=== PATIENT | male | born 1955 | race Caucasian/White ===

== ENCOUNTER → 2018-01-06 | Outpatient (REF) | payer BC ==
[2018-01-06 16:53] LABS: BASO # 0.1 10^3/uL (0.0-0.2); BASO % 1.6 % (0.0-1.0); EOS # 0.2 10^3/uL (0.0-0.50); HEMATOCRIT 47.5 % (42.0-52.0); HEMOGLOBIN 16.8 g/dl (13.5-17.5); IMMATURE GRANULOCYTE % 0.4 % (0-3.0); LYMPH # 2.7 10^3/uL (1.5-4.5); LYMPH % 34.8 % (24.0-44.0); MEAN CORPUSCULAR HEMOGLOBIN 31.1 pg (27.0-33.0); MEAN CORPUSCULAR HGB CONC 35.4 g/dl (32.0-36.5); MONO # 0.7 10^3/uL (0.0-0.8); MONO % 8.4 % (0.0-5.0); NEUTROPHILS % 51.8 % (36.0-66.0); PLATELET COUNT, AUTOMATED 235 10^3/uL (150-450); RED CELL DISTRIBUTION WIDTH 13.5 % (11.5-14.5); WHITE BLOOD COUNT 7.7 10^3/uL (4.0-10.0)
[2018-01-06 17:15] LABS: ALBUMIN 3.6 GM/DL (3.2-5.2); ALBUMIN/GLOBULIN RATIO 1.09 (1.00-1.93); ALKALINE PHOSPHATASE 107 U/L (45-117); ALT/SGPT 30 U/L (12-78); ANION GAP 8 MEQ/L (8-16); AST/SGOT 21 U/L (7-37); BILIRUBIN,TOTAL 0.4 MG/DL (0.2-1.0); BLOOD UREA NITROGEN 14 MG/DL (7-18); CALCIUM LEVEL 8.4 MG/DL (8.8-10.2); CARBON DIOXIDE LEVEL 25 MEQ/L (21-32); CHLORIDE LEVEL 110 MEQ/L (98-107); CHOLESTEROL LEVEL 171 MG/DL (<200); CHOLESTEROL RISK RATIO 4.275 (<5); CREATININE FOR GFR 1.01 MG/DL (0.70-1.30); GLOMERULAR FILTRATION RATE > 60.0 (>49); GLUCOSE, FASTING 96 MG/DL (70-100); HDL CHOLESTEROL 40 MG/DL (>40); LDL CHOLESTEROL 87.8 MG/DL (<100); NON-HDL-C 131 MG/DL; POTASSIUM SERUM 4.1 MEQ/L (3.5-5.1); PSA SCREENING 0.48 NG/ML (< 4.0); SODIUM LEVEL 143 MEQ/L (136-145); TOTAL PROTEIN 6.9 GM/DL (6.4-8.2); TRIGLYCERIDES LEVEL 216 MG/DL (<150)
== END ==
LOC: M SFHCCAPE 07:05
DX: Z12.5 Encounter for screening for malignant neoplasm of prostate (principal); Z13.6 Encounter for screening for cardiovascular disorders
CPT/HCPCS: 84443

== ENCOUNTER 2018-03-17 11:42 | Day surgery (SDC) | payer BC ==
[~2018-03-17 11:42] MED LIST: PROPOFOL 200 MG/20 ML VIAL As Ordered
[2018-03-17] MEDS: NS 1,000 ML IV (12:00)
== END 2018-03-17 15:08 | disposition home or self-care (01) ==
LOC: M OPP 11:42
DX: Z12.11 Encounter for screening for malignant neoplasm of colon (principal); K64.0 First degree hemorrhoids; K62.1 Rectal polyp; I10 Essential (primary) hypertension; K21.9 Gastro-esophageal reflux disease without esophagitis; Z79.899 Other long term (current) drug therapy; Z88.0 Allergy status to penicillin; Z88.8 Allergy status to other drugs, medicaments and biological substances; Z87.891 Personal history of nicotine dependence
CPT/HCPCS: 45380

== ENCOUNTER → 2019-05-19 | Outpatient (REF) | payer OTHER ==
[~2019-05-19] MED LIST changes: +LISI10TA4; -PROPOFOL 200 MG/20 ML VIAL As Ordered
[2019-05-19 17:58] LABS: BASO # 0.1 10^3/uL (0.0-0.2); BASO % 1.1 % (0.0-1.0); EOS # 0.2 10^3/uL (0.0-0.5); EOS % 2.3 % (0.0-3.0); HEMATOCRIT 46.3 % (42.0-52.0); HEMOGLOBIN 16.1 g/dl (13.5-17.5); LYMPH # 2.5 10^3/uL (1.5-5.0); LYMPH % 26.6 % (24.0-44.0); MEAN CORPUSCULAR HEMOGLOBIN 32.1 pg (27.0-33.0); MEAN CORPUSCULAR HGB CONC 34.8 g/dl (32.0-36.5); MEAN CORPUSCULAR VOLUME 92.2 fl (80.0-96.0); MONO # 0.7 10^3/uL (0.0-0.8); MONO % 7.8 % (0.0-5.0); NEUTROPHILS # 5.8 10^3/uL (1.5-8.5); NEUTROPHILS % 61.6 % (36.0-66.0); PLATELET COUNT, AUTOMATED 233 10^3/uL (150-450); RED BLOOD COUNT 5.02 10^6/uL (4.30-6.10); WHITE BLOOD COUNT 9.4 10^3/uL (4.0-10.0)
[2019-05-19 18:07] LABS: ALBUMIN 3.6 GM/DL (3.2-5.2); ALT/SGPT 37 U/L (12-78); BILIRUBIN,TOTAL 0.5 MG/DL (0.2-1.0); BLOOD UREA NITROGEN 15 MG/DL (7-18); CALCIUM LEVEL 9.1 MG/DL (8.8-10.2); CARBON DIOXIDE LEVEL 28 MEQ/L (21-32); CHLORIDE LEVEL 106 MEQ/L (98-107); CHOLESTEROL LEVEL 206 MG/DL (<200); CHOLESTEROL RISK RATIO 3.886 (<5); CREATININE FOR GFR 1.11 MG/DL (0.70-1.30); FREE T4 1.04 NG/DL (0.76-1.46); GLOMERULAR FILTRATION RATE > 60.0 (>49); GLUCOSE, FASTING 125 MG/DL (70-100); HDL CHOLESTEROL 53 MG/DL (>40); LDL CHOLESTEROL 126 MG/DL (<100); NON-HDL-C 153 MG/DL; POTASSIUM SERUM 4.2 MEQ/L (3.5-5.1); SODIUM LEVEL 141 MEQ/L (136-145); TOTAL PROTEIN 6.5 GM/DL (6.4-8.2); TRIGLYCERIDES LEVEL 133 MG/DL (<150)
== END ==
LOC: M SFHCCAPE 07:30
PROVIDERS: ATTEND Physician Assistant
DX: I10 Essential (primary) hypertension (principal); Z12.5 Encounter for screening for malignant neoplasm of prostate

== ENCOUNTER → 2019-10-13 | Outpatient (REF) | payer OTHER ==
[2019-10-13 16:37] LABS: HEMOGLOBIN A1c 6.3 %
[2019-10-13 16:44] LABS: ALT/SGPT 30 U/L (12-78); BILIRUBIN,TOTAL 0.7 MG/DL (0.2-1.0); BLOOD UREA NITROGEN 22 MG/DL (7-18); CALCIUM LEVEL 9.2 MG/DL (8.8-10.2); CARBON DIOXIDE LEVEL 31 MEQ/L (21-32); CHLORIDE LEVEL 103 MEQ/L (98-107); CHOLESTEROL LEVEL 188 MG/DL (<200); CHOLESTEROL RISK RATIO 4.272 (<5); CREATININE FOR GFR 1.26 MG/DL (0.70-1.30); GLOMERULAR FILTRATION RATE > 60.0 (>49); GLUCOSE, FASTING 115 MG/DL (70-100); HDL CHOLESTEROL 44 MG/DL (>40); LDL CHOLESTEROL 117 MG/DL (<100); NON-HDL-C 144 MG/DL; POTASSIUM SERUM 4.8 MEQ/L (3.5-5.1); SODIUM LEVEL 139 MEQ/L (136-145); TOTAL PROTEIN 7.1 GM/DL (6.4-8.2); TRIGLYCERIDES LEVEL 136 MG/DL (<150)
== END ==
LOC: M SFHCCAPE 07:31
PROVIDERS: ATTEND Physician Assistant
DX: I10 Essential (primary) hypertension (principal); R73.01 Impaired fasting glucose; E78.5 Hyperlipidemia, unspecified

== ENCOUNTER → 2019-11-07 | Outpatient (CLI) | payer OTHER ==
--- NOTE | 2019-11-07 15:54 | REP ---
LEFT KNEE, FIVE VIEWS: Five views of the left knee performed. No acute fracture or dislocation is seen. There is minimal medial joint space narrowing and subchondral scoliosis. There is mild to moderate joint effusion. There is mild spurring of the lateral and medial patellar facets. IMPRESSION: Mild degenerative changes without fracture or dislocation. Mild to moderate joint effusion. Electronically Signed by Matt Iniguez MD 11/08/2019 07:47 P
== END ==
LOC: M CLY 15:13
PROVIDERS: ATTEND Physician Assistant
DX: M25.562 Pain in left knee (principal); W19.XXXA Unspecified fall, initial encounter; Y92.89 Other specified places as the place of occurrence of the external cause

== ENCOUNTER → 2019-11-17 | Outpatient (CLI) | payer OTHER ==
--- NOTE | 2019-11-17 09:06 | REP ---
MRI left knee without contrast: History: Acute pain in the left knee. Comparison radiographs November 07, 2019. Technique: Axial, coronal and sagittal imaging planes were utilized. Proton density and T2-weighted scans were included with and without fat saturation. MRI findings: Cortical and medullary bone signal intensity are normal. There is no evidence of occult fracture. There is a moderate sized joint effusion. There is a moderate degree of prepatellar and periarticular anterior soft tissue edema. No localized fluid collection is seen. In the extra-articular soft tissues there are also venous varicosities medially. There is a small Mitchell's cyst. Medial and lateral patellar retinacular structures appear intact. Patellar and quadriceps tendons have an intact appearance. There is tendon insertion site spurring on the superior pole the patella at the quadriceps tendon insertion site. Anterior and posterior cruciate ligaments appear intact. There is no evidence of medial or lateral collateral ligament disruption. There is articular spurring at the patellofemoral articulation and there is articular cartilage thinning and irregularity in the lateral patellar facet. No focal full-thickness articular cartilage defect is seen. There is some medial and lateral tibiofemoral spurring which is early. There is a tear in the posterior horn of the lateral meniscus which extends to the inferior articular margin and horizontal component which extends into the mid body level. There is also similar increased signal intensity communicate with the inferior articular margin of the posterior horn and midbody of the medial meniscus indicating degenerative tear of the medial meniscus as well. No displaced meniscal material is appreciated. There is mild chondromalacia in the medial and lateral tibiofemoral compartment. Impression: Degenerative tears of the medial and lateral menisci. Joint effusion and Mitchell's cyst. Quadriceps tendonitis tendinosis changes. Extra-articular soft tissue edema pattern in the prepatellar soft tissues. Mild three compartment osteoarthritic spurring and some chondromalacia changes. Electronically Signed by Shiv Morales MD 11/17/2019 12:34 P
== END ==
LOC: M RAD 06:47
PROVIDERS: ATTEND Physician Assistant
DX: M25.562 Pain in left knee (principal)

== ENCOUNTER → 2020-10-16 | Outpatient (REF) | payer MEDICARE ==
[~2020-10-16] MED LIST changes: +LISI10TA22; -LISI10TA4
[2020-10-16 12:09] LABS: BASO # 0.1 10^3/uL (0.0-0.2); BASO % 1.5 % (0.0-1.0); EOS # 0.2 10^3/uL (0.0-0.5); EOS % 2.7 % (0.0-3.0); HEMATOCRIT 47.2 % (42.0-52.0); HEMOGLOBIN 15.6 g/dl (13.5-17.5); LYMPH % 37.4 % (24.0-44.0); MEAN CORPUSCULAR HEMOGLOBIN 29.4 pg (27.0-33.0); MEAN CORPUSCULAR HGB CONC 33.1 g/dl (32.0-36.5); MEAN CORPUSCULAR VOLUME 88.9 fl (80.0-96.0); MONO # 0.7 10^3/uL (0.0-0.8); MONO % 8.2 % (0.0-5.0); NEUTROPHILS % 49.8 % (36.0-66.0); PLATELET COUNT, AUTOMATED 287 10^3/uL (150-450); RED BLOOD COUNT 5.31 10^6/uL (4.30-6.10); WHITE BLOOD COUNT 8.1 10^3/uL (4.0-10.0)
[2020-10-16 12:45] LABS: BLOOD UREA NITROGEN 15 MG/DL (7-18); CARBON DIOXIDE LEVEL 31 MEQ/L (21-32); CHLORIDE LEVEL 106 MEQ/L (98-107); CREATININE FOR GFR 1.18 MG/DL (0.70-1.30); GLOMERULAR FILTRATION RATE > 60.0 (>49); GLUCOSE, FASTING 109 MG/DL (70-100); SODIUM LEVEL 142 MEQ/L (136-145)
[2020-10-16 12:46] LABS: ALBUMIN 3.5 GM/DL (3.2-5.2); ALT/SGPT 26 U/L (12-78); BILIRUBIN,TOTAL 0.4 MG/DL (0.2-1.0); CALCIUM LEVEL 8.9 MG/DL (8.8-10.2); CHOLESTEROL LEVEL 183 MG/DL (<200); CHOLESTEROL RISK RATIO 4.255 (<5); HDL CHOLESTEROL 43 MG/DL (>40); LDL CHOLESTEROL 105 MG/DL (<100); NON-HDL-C 140 MG/DL; TOTAL PROTEIN 7.1 GM/DL (6.4-8.2); TRIGLYCERIDES LEVEL 173 MG/DL (<150)
[2020-10-16 13:10] LABS: HEMOGLOBIN A1c 5.5 %
[2020-10-16 15:59] LABS: FREE T4 1.03 NG/DL (0.76-1.46); URIC ACID 8.5 MG/DL (3.5-7.2)
== END ==
LOC: M SFHCCLAY 08:07
PROVIDERS: ATTEND Physician Assistant
DX: M10.9 Gout, unspecified (principal); R79.89 Other specified abnormal findings of blood chemistry; E78.5 Hyperlipidemia, unspecified; I10 Essential (primary) hypertension; R73.01 Impaired fasting glucose; Z12.5 Encounter for screening for malignant neoplasm of prostate
CPT/HCPCS: 80053; 80061; 83036; 84439; 84443; 84550; 85025; G0103

== ENCOUNTER → 2021-01-24 | Outpatient (CLI) | payer MEDICARE ==
--- NOTE | 2021-01-24 15:24 | REP ---
INDICATION: RT ANTERIOR KNEE PAIN COMPARISON: None. TECHNIQUE: Five views right knee. FINDINGS: There is no evidence of acute fracture, dislocation, or intrinsic bone disease.There is mild medial joint space narrowing and subchondral sclerosis. There is mild spurring of the medial tibial spine. There is mild spurring of the medial and lateral patellar facets. I suspect a small joint effusion. IMPRESSION: No fracture or dislocation. Mild degenerative changes. Small joint effusion. <Electronically signed by Matt Iniguez > 01/24/21 [id number]
== END ==
LOC: M CLY 14:16
PROVIDERS: ATTEND Nurse Practitioner Family
DX: M17.11 Unilateral primary osteoarthritis, right knee (principal); M25.461 Effusion, right knee; M25.561 Pain in right knee

== ENCOUNTER → 2021-03-07 | Outpatient (REF) | payer MEDICARE ==
[2021-03-07 16:39] LABS: BASO # 0.1 10^3/uL (0.0-0.2); BASO % 1.4 % (0.0-1.0); EOS # 0.2 10^3/uL (0.0-0.5); EOS % 2.1 % (0.0-3.0); HEMATOCRIT 49.9 % (42.0-52.0); HEMOGLOBIN 16.8 g/dl (13.5-17.5); LYMPH # 2.6 10^3/uL (1.5-5.0); LYMPH % 34.5 % (24.0-44.0); MEAN CORPUSCULAR HEMOGLOBIN 28.8 pg (27.0-33.0); MEAN CORPUSCULAR HGB CONC 33.7 g/dl (32.0-36.5); MEAN CORPUSCULAR VOLUME 85.6 fl (80.0-96.0); MONO # 0.7 10^3/uL (0.0-0.8); MONO % 9.1 % (2.0-8.0); NEUTROPHILS % 52.6 % (36.0-66.0); PLATELET COUNT, AUTOMATED 247 10^3/uL (150-450); RED BLOOD COUNT 5.83 10^6/uL (4.30-6.10); WHITE BLOOD COUNT 7.7 10^3/uL (4.0-10.0)
[2021-03-07 16:46] LABS: ALBUMIN 4.1 GM/DL (3.2-5.2); ALT/SGPT 27 U/L (12-78); BILIRUBIN,TOTAL 0.7 MG/DL (0.2-1.0); BLOOD UREA NITROGEN 20 MG/DL (7-18); C REACTIVE PROTEIN QUANTITATIV 1.01 MG/DL (0.00-0.30); CALCIUM LEVEL 8.9 MG/DL (8.8-10.2); CARBON DIOXIDE LEVEL 25 MEQ/L (21-32); CHLORIDE LEVEL 106 MEQ/L (98-107); CREATININE FOR GFR 1.21 MG/DL (0.70-1.30); FERRITIN 47 NG/ML (26-388); GLOMERULAR FILTRATION RATE > 60.0 (>49); GLUCOSE, FASTING 139 MG/DL (70-100); IRON (FE) 81 UG/DL (65-175); SODIUM LEVEL 141 MEQ/L (136-145); TOTAL IRON BINDING CAPACITY 312 UG/DL (250-450); TOTAL PROTEIN 7.6 GM/DL (6.4-8.2); URIC ACID 9.1 MG/DL (3.5-7.2)
[2021-03-07 17:24] LABS: ERYTHROCYTE SEDIMENTATION RATE 4 mm/hr (0-20)
[2021-03-07 17:27] LABS: TOTAL 25(OH) VITAMIN D 23.1 NG/ML (30.0-100.0); VITAMIN B12 LEVEL 717 PG/ML (247-911)
[2021-03-10 03:07] LABS: ANA (HEP2) Negative (.); CYCLIC CITRULLINATED PEPTIDE 7 units (0-19); Lyme Disease IgG/IgM Antibodie <0.91 ISR (0.00-0.90); Lyme Disease IgM Ab Quantitati <0.80 index (0.00-0.79); TRANSFERRIN 242 mg/dL (177-329)
== END ==
LOC: M SFHCCAPE 12:01
PROVIDERS: ATTEND Physician Assistant
DX: M25.641 Stiffness of right hand, not elsewhere classified (principal); Z79.899 Other long term (current) drug therapy

== ENCOUNTER → 2021-03-07 | Outpatient (CLI) | payer MEDICARE ==
--- NOTE | 2021-03-07 13:54 | REP ---
INDICATION: STIFFNESS, SWELLING BILATERAL HANDS. COMPARISON: None. TECHNIQUE: Four views bilateral FINDINGS: There is mild rather symmetric appearing intra digital joint space narrowing seen bilaterally with minimal marginal osteophyte formation seen involving the DIP joints of all digits. There is marginal osteophytosis seen involving the head of the 3rd metacarpal on the right hand. Mild degenerative changes are seen involving each wrist. There is no acute fracture, dislocation, or subluxation. IMPRESSION: Chronic changes as described above. <Electronically signed by Tiburcio Riojas > 03/07/21 [id number]
== END ==
LOC: M CLY 13:30
PROVIDERS: ATTEND Physician Assistant
DX: M19.041 Primary osteoarthritis, right hand (principal); M19.042 Primary osteoarthritis, left hand; M25.641 Stiffness of right hand, not elsewhere classified

== ENCOUNTER → 2021-04-26 | Outpatient (CLI) | payer MEDICARE ==
[~2021-04-26] MED LIST changes: +ISOVUE-300 61% 50ML VIAL As Ordered ONE; +PROHANCE 279.3MG/ML 5ML VIAL As Ordered ONE
--- NOTE | 2021-04-26 10:15 | REP ---
INDICATION: PAIN IN RT WRIST. COMPARISON: Radiographs 03/07/2021. TECHNIQUE: Multiple sequences obtained in the axial, coronal and sagittal planes. Post arthrogram sequences obtained in the axial, coronal and sagittal planes with T1 fat saturation. FINDINGS: Triangular fibrocartilage complex:There is a tear of the triangular fibro cartilaginous complex at the insertion onto the radius. Scapholunate and lunatotriquetral ligaments: Intact. Flexor and extensor tendons: Intact. No tenosynovitis. Carpal tunnel region: No significant abnormality. No abnormal signal in median nerve. No ganglion cyst is seen. Joint fluid: No effusion. Distal radioulnar joint: There is moderate fluid in the distal radioulnar joint. There is narrowing of the distal radioulnar joint. Bone marrow:Subcortical marrow edema is seen along the distal radioulnar joint. There is also diffuse intercarpal joint degenerative change with multiple areas of mild subcortical marrow edema throughout the carpal bones. There is also mild subchondral marrow edema at the base of the 1st metacarpal. There is dorsal subluxation of the distal ulna with a suspected tear of the volar radioulnar ligament. IMPRESSION: There is a tear of the triangular fibro cartilaginous complex at the insertion onto the radius. There is narrowing of the distal radioulnar joint, which contains a moderate amount of fluid and there is mild subcortical marrow edema along the joint. Diffuse arthritic changes noted of the intercarpal joints. There is dorsal subluxation of the distal ulna with a suspected tear of the volar radioulnar ligament. <Electronically signed by Matt Iniguez > 04/26/21 [id number]
--- NOTE | 2021-05-01 15:21 | REP ---
INDICATION: PAIN IN RT WRIST. COMPARISON: None. TECHNIQUE: The procedure was performed under the direct supervision of Dr. Iniguez. The images were reviewed with Dr. Iniguez. The benefits and risks including but not limited to pain infection bleeding and anaphylaxis were explained to the patient and informed consent was obtained. The right radioscaphoid joint space was localized using fluoroscopic guidance. The skin was prepped and draped in a sterile fashion. 1% lidocaine was used as a local anesthetic. Using fluoroscopic guidance a 25 gauge needle was inserted and advanced into the joint. 3 mL of a solution containing 5 mL of Isovue 300 and 5 mL of a solution containing 20 mL of sterile saline and 0.15 mL of ProHance was injected into the joint. Images obtained during injection show filling of the radial carpal row. There is contrast extending into the distal radioulnar joint consistent with a triangular fibrocartilage complex tear. The needle was removed and the patient was taken to MRI for postprocedural imaging. The patient tolerated the procedure well and there were no immediate complications. 0.1 minutes of fluoroscopy time was utilized for this procedure. FINDINGS: There is contrast seen extending into the distal radioulnar joint consistent with a triangular fibrocartilage complex tear. IMPRESSION: Fluoro guidance for right wrist MRI arthrogram injection. Findings as described above. <Electronically signed by Chace Tenorio > 04/26/21 [id number] <Electronically signed by Matt Iniguez > 04/26/21 [id number]
== END ==
LOC: M RADPRO 07:42
PROVIDERS: ATTEND Orthopaedic Surgery Sports Medicine
DX: R93.7 Abnormal findings on diagnostic imaging of other parts of musculoskeletal system (principal); M25.531 Pain in right wrist; M65.88 Other synovitis and tenosynovitis, other site
CPT/HCPCS: 25246; 73223; 77002; A9576; Q9967

== ENCOUNTER → 2022-09-10 | Outpatient (REF) | payer MEDICARE ==
[~2022-09-10] MED LIST changes: -ISOVUE-300 61% 50ML VIAL As Ordered ONE; -PROHANCE 279.3MG/ML 5ML VIAL As Ordered ONE
[2022-09-10 18:40] LABS: ALBUMIN 3.8 G/DL (3.2-5.2); ALKALINE PHOSPHATASE 97 U/L (46-116); ALT/SGPT 22 U/L (7.0-40); AST/SGOT 23 U/L (<34); BILIRUBIN,TOTAL 0.7 MG/DL (0.3-1.2); BLOOD UREA NITROGEN 16 MG/DL (9-23); CALCIUM LEVEL 9.1 MG/DL (8.3-10.6); CARBON DIOXIDE LEVEL 24 MMOL/L (20-31); CHLORIDE LEVEL 106 MMOL/L (98-107); CHOLESTEROL LEVEL 174 MG/DL (<200); GLOMERULAR FILTRATION RATE > 60.0 (>49); GLUCOSE, FASTING 113 MG/DL (74-106); HDL CHOLESTEROL 48.3 MG/DL (>40); LDL CHOLESTEROL 98.1 MG/DL (<100); NON-HDL-C 126 MG/DL; POTASSIUM SERUM 4.4 MMOL/L (3.5-5.1); SODIUM LEVEL 140 MMOL/L (136-145); TOTAL PROTEIN 6.8 G/DL (5.7-8.2); TRIGLYCERIDES LEVEL 138 MG/DL (<150)
[2022-09-10 18:42] LABS: BASO # 0.1 10^3/uL (0.0-0.2); BASO % 1.6 % (0.0-1.0); EOS # 0.2 10^3/uL (0.0-0.5); EOS % 2.6 % (0.0-3.0); HEMATOCRIT 46.2 % (42.0-52.0); LYMPH # 2.2 10^3/uL (1.5-5.0); LYMPH % 27.3 % (24.0-44.0); MEAN CORPUSCULAR HEMOGLOBIN 27.2 pg (27.0-33.0); MEAN CORPUSCULAR HGB CONC 32.5 g/dl (32.0-36.5); MEAN CORPUSCULAR VOLUME 83.8 fl (80.0-96.0); MONO # 0.7 10^3/uL (0.0-0.8); MONO % 8.5 % (2.0-8.0); NEUTROPHILS # 4.9 10^3/uL (1.5-8.5); NEUTROPHILS % 59.8 % (36.0-66.0); PLATELET COUNT, AUTOMATED 306 10^3/uL (150-450); RED BLOOD COUNT 5.51 10^6/uL (4.30-6.10); THYROID STIMULATING HORMONE 3.993 uIU/ML (0.55-4.78); WHITE BLOOD COUNT 8.2 10^3/uL (4.0-10.0)
[2022-09-10 18:45] LABS: URIC ACID 7.4 MG/DL (3.7-9.2)
[2022-09-10 19:28] LABS: HEMOGLOBIN A1c 5.6 % (4.0-6.0)
== END ==
LOC: M SFHCCAPE 08:51
PROVIDERS: ATTEND Physician Assistant
DX: I10 Essential (primary) hypertension (principal); E78.5 Hyperlipidemia, unspecified; E79.0 Hyperuricemia without signs of inflammatory arthritis and tophaceous disease; Z12.5 Encounter for screening for malignant neoplasm of prostate; R73.01 Impaired fasting glucose; E55.9 Vitamin D deficiency, unspecified; Z79.899 Other long term (current) drug therapy
CPT/HCPCS: 80053; 80061; 82306; 83036; 84443; 84550; 85025; G0103